=== PATIENT | male | born 1960 | race Caucasian/White ===

== ENCOUNTER 2016-08-14 10:27 | Day surgery (SDC) | payer OTHER ==
[~2016-08-14] VITALS: Ht 180.3 cm; Wt 105.5 kg
--- NOTE | ~2016-08-14 | HP ---
PATIENT'S NAME: FILPIE [facility] AGE: 56 Y [address] ROOM: [place] [address] LOCATION: [facility] ADMIT DATE: 08/14/2016 History & Physical DISCHARGE DATE: FAMILY PHYSICIAN: Elliott Plaza MD ATTENDING PHYSICIAN: Jorje Sands DATE OF SERVICE: CHIEF COMPLAINT: Low back pain. HISTORY OF PRESENT ILLNESS: The patient is a 56-year-old male from [place], [place] who was admitted to the care of Dr. Jorje Sands, spine surgeon, today to undergo a hemilaminectomy of the lumbar vertebra with nerve root compression bilateral L2-L3. I am asked to follow him for general medical illness and pain management postop. When I see him, he has undergone a successful lumbar surgery per Dr. Sands. He is resting quietly in bed. Says that his pain is 1 to 2/10 and he has no nausea, vomiting, or chest pain. I told him I would follow him daily and see him in the morning and he understands. CURRENT MEDICATIONS: Tramadol 50 mg as needed. ALLERGIES TO MEDICATIONS: No known drug allergies. PREVIOUS OPERATIONS: Status post laminectomy 03/27, laminectomy L4 with decompression L4-L5 interspace, lumbar laminectomy L3 with decompression of L3-L4 interspace. Status post right total hip arthroplasty 2012. SOCIAL HISTORY: Does not smoke cigarettes. Has an occasional drink of beer. FAMILY HISTORY: Negative for problems with general anesthesia or bleeding disorder. IMMUNIZATION STATUS: Unknown. REVIEW OF SYSTEMS: HEENT: No recent sore throat. No change in vision. No earache. PATIENT'S NAME: FILIPE [facility] AGE: 56 Y [address] ROOM: [address] [address] LOCATION: [facility] ADMIT DATE: 08/14/2016 History & Physical DISCHARGE DATE: FAMILY PHYSICIAN: Elliott Plaza MD ATTENDING PHYSICIAN: Jorje Sands ENDOCRINE: He is not diabetic nor he does have thyroid disease. LUNGS: No history of asthma or recent cough or shortness of breath. HEART: No history of chest pain or palpitations or previous LA. GI: No recent nausea, vomiting, diarrhea, gallbladder disease, ulcer disease or melena or change in bowel habits. : No recent dysuria or frequency. No history of BPH. No history of STD. EXTREMITIES AND SPINE: As above. NEUROLOGIC: No history of seizure or syncope in the past or stroke. SKIN: No recent rashes. MENTAL STATUS: No recent depression or anxiety. PHYSICAL EXAMINATION: GENERAL: A moy-haired male who appears his stated age. He is oriented to person, place, and time. I believe he is competent. VITAL SIGNS: Noted. HEENT: Shows pupils react to light. TMs not visualized. Posterior pharynx clear. NECK: Unremarkable. Thyroid not enlarged. LUNGS: Clear without wheeze or rub. HEART: Shows no murmur, gallop, or rub. ABDOMEN: Soft without point tenderness or mass. PELVIC AND RECTAL: Not done. EXTREMITIES: Unremarkable. NEUROLOGIC: Grossly intact. Cranial nerves intact. Mental status normal. Postop cognition. ASSESSMENT: 1. Low back pain. 2. Status post lumbar surgery today per Dr. Sands's note and operative note. 3. Previous low back surgery per Dr. Sands in the past. 4. Status post right total hip arthroplasty. PLAN: Follow daily. Further changes indicated. MD TEE JENKINS/[facility] /[id number] D: [id number] T: [id number] HISTORY & PHYSICAL
--- NOTE | ~2016-08-14 | OR ---
[facility]: [facility] AGE: 56 Y [address] ROOM: [place] [address] LOCATION: [facility] ADMIT DATE: 08/14/2016 OR/Procedure Report DISCHARGE DATE: FAMILY PHYSICIAN: Elliott Plaza MD ATTENDING PHYSICIAN: Jorje Sands SURGEON: Jorje Sands MD LINE ERECTOR APPRENTICE: DATE OF PROCEDURE: 08/14/2016 PREOPERATIVE DIAGNOSES: 1. Lumbar degenerative disk disease. 2. Lumbar spinal stenosis. 3. Lumbar radiculopathy. 4. Lumbar neurogenic claudication. POSTOPERATIVE DIAGNOSES: 1. Lumbar degenerative disk disease. 2. Lumbar spinal stenosis. 3. Lumbar radiculopathy. 4. Lumbar neurogenic claudication. PROCEDURE PERFORMED: Lumbar hemilaminotomy, bilateral L2-3. VIOLIN RESTORER: KAROLYN Dumas. ANESTHESIA: General. ESTIMATED BLOOD LOSS: 50 mL. COMPLICATIONS: None. SPECIMENS: None. FINDINGS: Severe stenosis at L2-3. OPERATIVE INDICATIONS: The patient is a 56-year-old male, whom I have followed for symptomatic lumbar spinal stenosis. He had failed conservative treatment and was offered surgery in the form of a lumbar decompressive operation. After the details, risks, benefits, and options were explained, he freely consented to surgery. DESCRIPTION OF PROCEDURE: After the patient was correctly identified and operative site initialed, he was taken back to the operating room and placed in the supine position. After general anesthesia was induced, he was placed in the prone position on the Christopher table with all bony prominences well PATIENT'S NAME: JERONIMO [facility] AGE: 56 Y [address] ROOM: [place] [address] LOCATION: [facility] ADMIT DATE: 08/14/2016 OR/Procedure Report DISCHARGE DATE: FAMILY PHYSICIAN: Elliott Plaza MD ATTENDING PHYSICIAN: Jorje Sands padded and protected. The back was prepped and draped in the usual sterile fashion. A time-out was taken to verify the patient and procedure. He received IV antibiotics prior to surgery. 10 mL of 0.25% Marcaine with epinephrine was injected in line with the incision. A #10 blade was used to make a midline incision over the operative levels. Dissection was taken down through skin and subcutaneous tissue with electrocautery. The fascia was opened in the midline, and a subperiosteal dissection was performed to expose the posterior elements at L2-3. A Kerrison was placed on the inferior edge of the lamina and verified L2-3 on fluoroscopy. A high-speed bur was used to create a generous laminotomy defect bilaterally. It was completed with Kerrison's. The ligamentum flavum was resected and then the dura was decompressed directly. The posterior cyst was excised. After the decompression was complete and there were no further areas of stenosis, the area was irrigated and dried. 80 mg of Depo-Medrol was injected dorsally over the dura. The retractors were removed from the wound, and the fascia was closed with interrupted #1 Vicryl suture, 0 Vicryl on the subcutaneous tissue, and rossi on the skin. Sterile dressing was applied. The patient was awakened from anesthesia and taken to the recovery room in stable condition. MD CHRISTINA GUILLAUME/[facility] /[id number] d: 08/14/[id number] t: 08/19/162002, OPERATIVE SUMMARY
[~2016-08-14 10:27] MED LIST: ULTRAM50 MG PO
[2016-08-14 11:16] LABS: PROTIME 10.3 SECONDS (9.6-11.1)
--- NOTE | 2016-08-14 16:46 | NUR ---
patient doing well. returned from pacu at 1530. vss. csm adequate. dressing d/i to back. no void since surgery. 1st hrly at 1915.
--- NOTE | 2016-08-15 03:34 | NUR ---
Significant Event: PATIENT ALERT AND ORIENTED X 3. VSS. TAKING PO AND VOIDING WITHOUT DIFFICULTY. UP WITH 1 ASSIST AND GB - GAIT STEADY. HAS BEEN UP TO BATHROOM AND UP IN HALLWAY. DRESSING TO BACK HAS A SMALL AMOUNT OF SHADOW DRAINGE THAT IS MARKED. PAIN WELL CONTROLLED WITH NORCO LAST AT 0500 AND SOMA LAST AT 0311. IV PATENT IN LEFT POSTERIOR FOREARM. CSM'S WNL. PLEASANT AND COOPERTIVE WITH CARES. POSSIBLE D/C TO HOME TODAY. Follow up:
--- NOTE | 2016-08-15 06:44 | NUR ---
[id number] Supervised [facility] Hobbing Machine Operator.
--- NOTE | 2016-08-15 09:45 | NUR ---
Introduced self/role to patient. He lives in [place], has supports at home. Didn't think there would be any DME he would need. 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 Planning to go home today. Added my name to his marker board. Will continue to follow.
[2016-08-15] MEDS ORDERED: SOMA350 MG PO (10:24)
[2016-08-15] MEDS ORDERED: ROXICODONE 5MG (5 MG PO (10:24)
--- NOTE | 2016-08-15 15:10 | NUR ---
D: PATIENT ALERT AND ORIENTED X3. BACK DRESSING INTACT, WITH SMALL AMOUNT OF SHADOW DRAINAGE. CSM ASSESSMENTS WNL TO BILATERAL UPPER AND LOWER EXTREMITIES. AMBULATES AD CR AND UP TO CHAIR WITH SBA, USE OF GAIT BELT, BACK BRACE ON WITH ACTIVITY. RATES BACK PAIN 1 ON PAIN SCALE, RECEIVED ROUTINE OFIRMEV AT 1053 AND ROXICODONE 1 TAB AT 1458. BILATERAL KNEE HIGH ALEXUS HOSE ON. DISCHARGE INSTRUCTIONS REVIEWED WITH PATIENT AND , VERBALIZES UNDERSTANDING. PATIENT DISMISSED TO HOME, ACCOMPANIED BY . ASSISTED TO VEHICLE VIA W/C AND TA ASSISTANCE.
== END 2016-08-15 15:08 | disposition disaster alternative care site (69) ==
LOC: G3N 10:27 → GSDC 10:27 → G3N 15:30 → GSDC 08-15 15:08
PROVIDERS: Orthopaedic Surgery Orthopaedic Surgery of the Spine
PROC: 00NY0ZZ Release Lumbar Spinal Cord, Open Approach (ICD-10-PCS; principal; 2016-08-14)
DX: M48.06 Spinal stenosis, lumbar region (principal); M51.16 Intervertebral disc disorders with radiculopathy, lumbar region; M47.26 Other spondylosis with radiculopathy, lumbar region; Z79.899 Other long term (current) drug therapy; Z98.890 Other specified postprocedural states
CPT/HCPCS: J0131; J0171; J0690; J1040; J1100; J1885; J2001; J2250; J2405; J3480; J7120